=== PATIENT | female | born 1950 | race Hispanic/Latino ===

== ENCOUNTER → 2019-01-04 | Outpatient (CLI) | payer MEDICARE | END | disposition home or self-care (01) | LOC: RAH 06:57 | PROVIDERS: ATTEND Internal Medicine Gastroenterology | DX: R14.2 Eructation (principal); R11.0 Nausea | CPT/HCPCS: 78264; A9541 ==

== ENCOUNTER → 2019-01-06 | Outpatient (CLI) | payer MEDICARE | END | disposition home or self-care (01) | LOC: RAH 10:08 | PROVIDERS: ATTEND Family Medicine | DX: Z12.31 Encounter for screening mammogram for malignant neoplasm of breast (principal) | CPT/HCPCS: 77067 ==

== ENCOUNTER → 2019-01-10 | Outpatient (CLI) | payer MEDICARE | END | disposition home or self-care (01) | LOC: RAH 09:37 | PROVIDERS: ATTEND Internal Medicine Gastroenterology | DX: K44.9 Diaphragmatic hernia without obstruction or gangrene (principal); K21.9 Gastro-esophageal reflux disease without esophagitis | CPT/HCPCS: 74240 ==

== ENCOUNTER 2019-04-18 08:33 | Emergency (ER) | payer MEDICARE ==
[2019-04-18 09:10] LABS: BASOPHILS % (AUTO) 0.1 % (0.0-5.0); EOSINOPHILS % (AUTO) 0.1 % (0.0-8.0); HEMATOCRIT 38.4 % (36-48); LYMPHOCYTES % (AUTO) 6.1 % (21.0-51.0); MEAN CORPUSCULAR HEMOGLOBIN 22.9 pg (27.0-33.0); MEAN CORPUSCULAR HGB CONC 29.2 g/dL (32.0-36.0); MEAN CORPUSCULAR VOLUME 78.4 fL (79-99); NEUTROPHILS % (AUTO) 88.3 % (40.0-77.0); PLATELET COUNT (AUTO) 269 K/uL (130-400); RED CELL DISTRIBUTION WIDTH 19.2 % (11.0-15.5); WHITE BLOOD COUNT (AUTO) 13.3 K/uL (4.8-10.8)
[2019-04-18] MEDS ORDERED: SODIUM CHLORIDE 0.9% 1000ML 1,000 ML IV ONE ×3 (09:14→12:22)
[2019-04-18 09:15] LABS: CREATININE 0.8 mg/dL (0.5-1.5)
[2019-04-18 09:20] LABS: ALBUMIN 3.2 g/dL (3.5-5.0); BILIRUBIN,TOTAL 0.6 mg/dL (0.2-1.0); TOTAL PROTEIN, SERUM 7.9 g/dL (6.0-8.3)
[2019-04-18 12:40] LABS: ABG BASE EXCESS -17.1 mmol/L (-2.0-3.0); ABG HCO3 7.9 mmol/L (21.0-28.0); ABG OXYGEN SATURATION 97.3 % (95.0-99.0); ABG PCO2 19 mmHg (32-45)
[2019-04-18] MEDS ORDERED: ONDANSETRON HCL 4 MG/2 ML VIAL ONE ×2 (13:31→15:35)
== END 2019-04-18 16:53 | disposition short-term general hospital (02) ==
LOC: EDH 08:33
DX: E87.2 Acidosis (principal); G43.A1 Cyclical vomiting, in migraine, intractable; E86.0 Dehydration
CPT/HCPCS: 36415; 36600; 71045; 74021; 80053; 82803; 85025; 96360; 96361; 99285; J2405 ×2; J7030 ×3

== ENCOUNTER → 2020-04-24 | Outpatient (CLI) | payer OTHER | END | disposition home or self-care (01) | LOC: RAH 07:57 | PROVIDERS: ATTEND Internal Medicine | DX: Z12.31 Encounter for screening mammogram for malignant neoplasm of breast (principal) | CPT/HCPCS: 77067 ==

== ENCOUNTER → 2021-05-28 | Outpatient (CLI) | payer MEDICARE | END | disposition home or self-care (01) | LOC: RAH 11:32 | PROVIDERS: ATTEND Internal Medicine | DX: Z12.31 Encounter for screening mammogram for malignant neoplasm of breast (principal) | CPT/HCPCS: 77067 ==

== ENCOUNTER → 2023-03-31 | Outpatient (CLI) | payer OTHER | END | disposition home or self-care (01) | LOC: RAH 10:24 | PROVIDERS: ATTEND Internal Medicine | DX: Z12.31 Encounter for screening mammogram for malignant neoplasm of breast (principal) | CPT/HCPCS: 77067 ==

== ENCOUNTER 2023-08-21 15:21 | Emergency (ER) | payer OTHER ==
[~2023-08-21] VITALS: Ht 144.8 cm; Wt 51.3 kg
[2023-08-21] MEDS: ACETAMINOPHEN 500 MG TABLET PO ONE (16:26)
[2023-08-21 16:30] VITALS: BP 132/74; PULSE 68; RESP 18; O2SAT 98
== END 2023-08-21 17:35 | disposition home or self-care (01) ==
LOC: EDH 15:21
DX: S80.01XA Contusion of right knee, initial encounter (principal); W01.0XXA Fall on same level from slipping, tripping and stumbling without subsequent striking against object, initial encounter; Y93.01 Activity, walking, marching and hiking; Y92.89 Other specified places as the place of occurrence of the external cause; Y99.8 Other external cause status; M23.91 Unspecified internal derangement of right knee; K21.9 Gastro-esophageal reflux disease without esophagitis; Z90.710 Acquired absence of both cervix and uterus; Z98.890 Other specified postprocedural states; Z98.84 Bariatric surgery status
CPT/HCPCS: 29505; 73562

== ENCOUNTER → 2024-04-03 | Outpatient (CLI) | payer OTHER ==
--- NOTE | 2024-04-03 09:53 | HMCIMG ---
MAMMO SCREENING BILATERAL HISTORY: Screening mammogram. COMPARISON: 03/31/2023 TECHNIQUE: Bilateral screening mammogram with CAD was performed with craniocaudal and mediolateral oblique projections. FINDINGS: There are scattered areas of fibroglandular density. There is no evidence of a dominant mass, or suspicious microcalcification. There is no evidence of nipple retraction or skin thickening. IMPRESSION: 1. Stable mammogram. Patient was entered into a reminder system with a target due date for their next mammogram. BI-RADS: CATEGORY 2: BENIGN FINDINGS Recommend monthly self breast exam as well as annual clinical examination. A negative x-ray should not delay biopsy if a dominant or clinically suspicious mass is present, since 8-10% of cancers are not identified by mammography. Dense breasts particularly, may obscure an underlying neoplasm. Some of these may be detected clinically and therefore, clinical examination is an essential part of breast evaluation.
== END | disposition home or self-care (01) ==
LOC: RAH 09:17
PROVIDERS: ATTEND Nurse Practitioner Family
DX: Z12.31 Encounter for screening mammogram for malignant neoplasm of breast (principal); R92.323 Mammographic fibroglandular density, bilateral breasts
CPT/HCPCS: 77067

== ENCOUNTER → 2025-04-04 | Outpatient (CLI) | payer OTHER | END | disposition home or self-care (01) | LOC: RAH 09:49 | PROVIDERS: ATTEND Internal Medicine | DX: Z12.31 Encounter for screening mammogram for malignant neoplasm of breast (principal) | CPT/HCPCS: 77067 ==